=== PATIENT | female | born 1935 | race Caucasian/White ===

== ENCOUNTER 2023-03-09 10:24 | Emergency (ER) | payer MEDICARE, OTHER ==
[2023-03-09 10:51] VITALS: BP 166/90; O2SAT 99
--- NOTE | 2023-03-09 11:15 | XRAY Report ---
PROCEDURE: Knee 4 View LT INDICATIONS: Trauma TECHNIQUE: 4 views of the knee(s) were acquired. COMPARISON: None. FINDINGS: Bones: No fractures or dislocations . Mild tricompartmental osteoarthritis is seen. No significant p atellar subluxation. No suspicious bony lesions. Soft tissues: No knee joint effusion. No suspicious soft tissue calcifications or masses. IMPRESSION: No acute left knee fracture or dislocation. No significant joint effusion. Reviewed by: Bashir Burrell MD on 03/09/2023 11:13 AM PST Approved by: Bashir Burrell MD on 03/09/2023 11:13 AM PST Station ID: [id number]
== END 2023-03-09 13:16 | disposition left against medical advice (07) ==
LOC: ED 10:24
DX: Z53.21 Procedure and treatment not carried out due to patient leaving prior to being seen by health care provider (principal)